=== PATIENT | female | born 1995 | race Caucasian/White ===

== ENCOUNTER → 2019-09-12 11:46 | Outpatient (CLI) | payer OTHER, SELFPAY ==
[2019-09-12 14:08] LABS: Adenovirus Not Detected (Not Detect); Bordetella pertussis Not Detected (Not Detect); Chlamydophila pneumoniae Not Detected (Not Detect); Coronavirus 229E Not Detected (Not Detect); Coronavirus HKU1 Not Detected (Not Detect); Coronavirus NL 63 Not Detected (Not Detect); Coronavirus OC43 Not Detected (Not Detect); Human Metapneumovirus Detected (Not Detect); Human Rhinovirus/Enterovirus Not Detected (Not Detect); Influenza A Not Detected (Not Detect); Influenza B Not Detected (Not Detect); Mycoplasma pneumoniae Not Detected (Not Detect); Parainfluenza Virus 1 Not Detected (Not Detect); Parainfluenza Virus 2 Not Detected (Not Detect); Parainfluenza Virus 3 Not Detected (Not Detect); Parainfluenza Virus 4 Not Detected (Not Detect); Respiratory Syncytial Virus Not Detected (Not Detect)
== END ==
PROVIDERS: Visit Provider Physician Assistant
DX: R68.89 Other general symptoms and signs (principal)
CPT/HCPCS: 87633

== ENCOUNTER → 2020-06-02 16:47 | Outpatient (CLI) | payer OTHER, SELFPAY ==
--- NOTE | 2020-06-02 16:50 | DI.RAD.S_ITS ---
PROCEDURE: XR FOOT RT MIN 3V INDICATIONS: R lateral midfoot pain TECHNIQUE: 3 views of the foot were acquired. COMPARISON: None. FINDINGS: Bones: No fractures or dislocations. No suspicious bony lesions. Soft tissues: No tibiotalar joint effusion. Achilles tendon appears normal. IMPRESSION: No trauma found. Source of pain is not seen. Dictated by: Gigi Gonzalez M.D. on 06/02/2020 at 17:08 Approved by: Gigi Gonzalez M.D. on 06/02/2020 at 17:09
== END ==
PROVIDERS: Referring Provider Student in an Organized Health Care Education/Training Program; Visit Provider Student in an Organized Health Care Education/Training Program
DX: M79.671 Pain in right foot (principal)
CPT/HCPCS: 73630

== ENCOUNTER 2021-10-17 17:30 | Emergency (ER) | payer OTHER, SELFPAY ==
[2021-10-17 17:35] VITALS: BP 153/67; PULSE 91; RESP 16; TEMP 36.7; O2SAT 97; BMI 26.6
--- NOTE | 2021-10-17 17:39 | DI.RAD.S_ITS ---
PROCEDURE: XR ANKLE LT MIN 3V INDICATIONS: pop in calf- assessing for Achilles rupture TECHNIQUE: 3 views of the ankle were acquired. COMPARISON: None. FINDINGS: Bones: No fractures or dislocations. Ankle mortise is normally aligned. No suspicious bony lesions. The talar dome demonstrates no salima abnormality. Soft tissues: Thickening is seen of the distal Achilles tendon. IMPRESSION: There is thickening seen of the distal Achilles tendon, which can be seen in patients with partial Achilles tears. If it would be helpful for clinical management decision making, please consider a dedicated, scheduled ankle MRI for further evaluation (assuming that there is no contraindication). Dictated by: Jerome Pittman M.D. on 10/17/2021 at 17:03 Approved by: Jerome Pittman M.D. on 10/17/2021 at 17:03
--- NOTE | 2021-10-17 19:07 | ED.LOWEXIN ---
HPI - Extremity Injury (Lower) <Herson Adams PA-C - Last Filed: 10/17/21 20:12> General Chief Complaint: Extremity Injury, Lower Stated Complaint: LEFT LEG INJURY CALF MUSCLE Time Seen by Provider: 10/17/21 18:16 Source: patient Mode of arrival: Ambulatory History of Present Illness HPI Narrative: Patient is a 26-year-old female presenting to the emergency department today for evaluation a left lower extremity injury. Patient is a [employer] and she explains that she was chasing down a suspect when she felt a pop in her left calf and fell to the ground. He states that she has been able to put weight on the left lower extremity but feels that she is incapable of taking a full step with the left foot. Of note, patient denies pain or injury elsewhere and states that she did not hit her head or lose consciousness as a result of the fall. No fever, chills, chest pain, cough, shortness of breath, nausea, vomiting, diarrhea, constipation, abdominal pain, dysuria, hematuria, numbness and tingling lower extremities, or any other concerning symptoms reported. No further concerns were voiced at this time. Related Data Previous Rx's Medication Instructions Recorded albuterol sulfate 90 mcg/actuation 2 puff INHALATION Q4-6H PRN #8.5 10/03/19 aerosol inhaler gram Allergies Allergy/AdvReac Type Severity Reaction Status Date / Time No Known Drug Allergies Allergy Verified 10/17/21 17:36 Review of Systems <Herson Adams PA-C - Last Filed: 10/17/21 20:12> Constitutional Constitutional: Denies chills, Denies fatigue, Denies fever(s), Denies frequent falls, Denies lethargy and Denies weakness Eyes Eyes: Denies loss of vision ENT Ears, Nose, Mouth, and Throat: Denies dizziness and Denies neck pain Cardiovascular Cardiovascular: Denies chest pain, Denies irregular heart rhythm, Denies lightheadedness, Denies palpitations, Denies dyspnea, Denies dyspnea on exertion and Denies orthopnea Respiratory Respiratory: Denies cough, Denies dyspnea, Denies dyspnea on exertion and Denies wheezing Gastrointestinal Gastrointestinal: Denies abdominal pain, Denies change in bowel habits, Denies diarrhea, Denies nausea and Denies vomiting Genitourinary Genitourinary: Denies hematuria, Denies flank pain, Denies urinary incontinence and Denies urinary urgency Musculoskeletal Musculoskeletal: Denies back pain, Reports arthralgias (Left leg pain), Denies muscle weakness, Denies neck pain, Denies numbness, Denies tingling and Reports other (Inability to ambulate on left lower extremity) Integumentary/Breasts Skin/Breast: Denies pruritus, Denies erythema, Denies rash and Denies wounds Neurologic Neurologic: Denies behavioral changes, Denies confusion, Denies dizziness, Denies frequent falls, Denies loss of vision, Denies numbness, Denies tingling and Denies weakness Psychiatric Psychiatric: Denies behavioral changes and Denies confusion Endocrine Endocrine: Denies fatigue and Denies palpitations Allergic/Immunologic Allergic/Immunologic: Denies wheezing Patient History <Herson Adams PA-C - Last Filed: 10/17/21 20:12> Medical History Swelling of postauricular region Toe pain, right Social History Smoking Status: Former smoker Smoking Status: Former smoker alcohol intake frequency: other Substance Use Type: does not use Exam <Herson Adams PA-C - Last Filed: 10/17/21 20:12> Narrative Exam Narrative: GENERAL: [] year old patient appears stated age. Well-developed patient, in mild distress. HEAD: Atraumatic. Normocephalic. EYES: Pupils equal round and reactive. Extraocular motions intact. No scleral icterus. No injection or drainage. ENT: Nose without bleeding, purulent drainage. Throat without erythema, tonsillar hypertrophy or exudate. Airway patent. NECK: Trachea midline. Non tender CARDIOVASCULAR: Regular rate and rhythm without murmurs, gallops, or rubs. RESPIRATORY: Clear to auscultation. Breath sounds equal bilaterally. No wheezes, rales, or rhonchi. GASTROINTESTINAL: Abdomen soft, non-tender, nondistended. EXTREMITIES: No edema. Positive Calhoun sign on the left lower extremity as there is no plantar flexion when the gastrocnemius is squeezed. Gap palpated in the area of the Achilles tendon. Tenderness to palpation with direct pressure applied to the left gastrocnemius. Good sensation light touch appreciated throughout the bilateral lower extremities. DP pulse palpated on the left. Patient is able to actively dorsiflex the left foot with decreased ability to plantar flex against resistance. BACK: Nontender without deformity or crepitance. No flank tenderness. NEURO: AOx3. SKIN: No rash or erythema of visible areas Initial Vital Signs Initial Vital Signs: Vital Signs Temperature 98.1 F 10/17/21 17:35 Pulse Rate 91 H 10/17/21 17:35 Respiratory Rate 16 10/17/21 17:35 Blood Pressure 153/67 H 10/17/21 17:35 Pulse Oximetry 97 10/17/21 17:35 <Becky Rees MD - Last Filed: 10/18/21 03:56> Initial Vital Signs Initial Vital Signs: Vital Signs Temperature 98.1 F 10/17/21 17:35 Pulse Rate 91 H 10/17/21 17:35 Respiratory Rate 16 10/17/21 17:35 Blood Pressure 153/67 H 10/17/21 17:35 Pulse Oximetry 97 10/17/21 17:35 Course <Herson Adams PA-C - Last Filed: 10/17/21 20:12> Course Course Narrative: Left ankle x-ray obtained. Orders Ordered: ED Orders 10/17/21 17:39 XR ankle LT min 3V Stat Consultations Consultation #1: Consultation with Dr. Phillips (orthopedic surgery). She recommends having the patient placed in a short-leg splint in plantar flexion and plan to follow-up with patient in clinic sometime this week. Time: 18:50 Vital Signs Vital signs: Vital Signs - 8 hr 10/17/21 17:35 Temperature 98.1 F Pulse Rate 91 H Respiratory Rate 16 Blood Pressure 153/67 H Pulse Oximetry 97 <Becky Rees MD - Last Filed: 10/18/21 03:56> Orders Ordered: ED Orders 10/17/21 17:39 XR ankle LT min 3V Stat Vital Signs Vital signs: Vital Signs - 8 hr 10/17/21 17:35 Temperature 98.1 F Pulse Rate 91 H Respiratory Rate 16 Blood Pressure 153/67 H Pulse Oximetry 97 MDM - Extremity Injury (Lower) <FAHEEM Garcia Last Filed: 10/17/21 20:12> Imaging Data Extremity x-ray #1: Radiologist's Impression: PROCEDURE:? XR ANKLE LT MIN 3V ? INDICATIONS:? pop in calf- assessing for Achilles rupture ? TECHNIQUE:? 3 views of the ankle were acquired.? ? COMPARISON:? None. ? FINDINGS:? ? Bones:? No fractures or dislocations.? Ankle mortise is normally aligned.? No suspicious bony lesions.? The talar dome demonstrates no salima abnormality.? ? Soft tissues:? Thickening is seen of the distal Achilles tendon. ? ? IMPRESSION:? There is thickening seen of the distal Achilles tendon, which can be seen in patients with partial Achilles tears. ? If it would be helpful for clinical management decision making, please consider a dedicated, scheduled ankle MRI for further evaluation (assuming that there is no contraindication).? ? Dictated by: Jerome Pittman M.D. on 10/17/2021 at 17:03 ? ? Approved by: Jerome Pittman M.D. on 10/17/2021 at 17:03 ? MDM Narrative Medical decision making narrative: Differential diagnosis to consider but not limited to Achilles tendon rupture versus ankle fracture versus dislocation versus sprain versus strain. I discussed results of x-ray imaging and physical exam findings with the patient and informed her that it does appear she has experienced an Achilles tendon rupture. I discussed the consultation that I had with Dr. Phillips and inform the patient that she would be placed in a short-leg splint in plantar flexion with plans to follow-up in clinic with Orthopedics. Patient expresses understanding and agrees to plan. I urged the patient to avoid placing weight on the left lower extremity until she is able to be evaluated by Orthopedics. She states that this time she is comfortable being discharged home and is stable for discharge. Strict return precautions were discussed with the patient prior to discharge. Discharge Plan Departure Patient Disposition: Home Clinical Impression: Injury of left Achilles tendon Instructions: DI for Achilles Tendon Rupture Activity Restrictions/Additional Instructions: *You have been diagnosed with left Achilles tendon injury *What to do: *Please continue to take your regular medications as directed. [ ] New medication prescriptions sent to your pharmacy: [ ] [ ] New medication written as a paper prescription [X] No new medications given You were evaluated in the emergency department today for a left lower extremity injury. Physical examination and x-ray findings indicate you may have experienced a and Achilles tendon rupture. You were placed in a plantar flexion short leg cast prior to discharge. I have set up a referral for you to follow-up with orthopedics for further evaluation and management. Their office should be reaching out to you to schedule an appointment sometime this week. Please ensure that you follow-up with the primary care provider within the next 2-3 days for further evaluation. Do not hesitate to return to the emergency department if you experience worsening pain, walks of sensation in the left lower extremity, or any other concerning symptoms. *Please follow up with your primary care provider in 2-3 days, call for an appointment. Let them know you were seen in the Emergency Department and that we ask that you be seen in follow up. We will electronically transmit a record of today's note if your PCP is in our system *If you do not have a primary care provider please contact the [facility] Resource line at [phone]. They will ask some questions about your medical history and help get you set up with a doctor in the community. *Return to Emergency Department if you should have any new, worsening or concerning symptoms, such as [fever greater than 101 F, shaking chills, worsening pain, persistent vomiting or other bothersome symptoms] Prescriptions: No Action albuterol sulfate 90 mcg/actuation HFA aerosol inhaler 2 puff INHALATION Q4-6H PRN (Reason: shortness of breath or wheezing) Qty: 8.5 0RF Referrals: Gilma Phillips MD [Physician] - 5-7 days <Becky Rees MD - Last Filed: 10/18/21 03:56> Cosign ED Attending Cosjoseature Attestation: I was immediately available in the department for consultation throughout this patient's visit. I agree with documentation as above. Becky Rees MD
== END 2021-10-17 20:09 | disposition home or self-care (01) ==
PROVIDERS: Emergency Provider Physician Assistant
DX: S86.002A Unspecified injury of left Achilles tendon, initial encounter (principal); Z87.891 Personal history of nicotine dependence; X58.XXXA Exposure to other specified factors, initial encounter; Y93.02 Activity, running; Y99.0 Civilian activity done for income or pay
CPT/HCPCS: 29515; 73610; 99282; 99283

== ENCOUNTER → 2022-05-11 08:12 | Outpatient (CLI) | payer OTHER, SELFPAY ==
--- NOTE | 2022-05-11 08:13 | DI.RAD.S_ITS ---
PROCEDURE: HL HYSTEROSAPINGOGRAPHY INDICATIONS: Secondary infertility COMPARISON: [facility], CR, XR ANKLE LT MIN 3V, 10/17/2021, 17:35. FINDINGS: Patient had a documented negative test prior to the study. Following speculum insertion, a balloon-tip catheter was inserted into the cervical canal, and secured by inflating the balloon by Dr. Ashley. Contrast was then injected into the endometrial canal. Uterus: The uterine cavity appears normal in size and morphology, without synechiae or masses. Fallopian tubes: Both fallopian tubes fill with contrast, and appear normal in caliber and morphology. There is ready dispersion of contrast into the peritoneal cavity. IMPRESSION: Normal hysterosalpingogram. Patent fallopian tubes bilaterally. Dictated by: Roland Ortega M.D. on 05/11/2022 at 12:35 Approved by: Roland Ortega M.D. on 05/11/2022 at 12:37
--- NOTE | 2022-05-11 09:16 | P.PCN_ITS ---
Procedures Date/Time Date of procedure: 05/11/22 Time of procedure: 08:40 General Procedure description: HYSTEROSALPINGOGRAM PROCEDURE NOTE Following informed consent, the patient was placed in modified dorsal lithotomy position on the fluoroscopy table and preparations made for HSG. A bivalve speculum was inserted in the vagina and the cervix itself was painted with Betadine solution. An os finder was used to identify and slightly dilate the endocervical canal and the HSG catheter was introduced into the endometrial cavity. The balloon was inflated with 1.5 cc of air and secured in the lower uterine segment. Radio-opaque contrast material was then slowly injected into the uterine cavity with fluoroscopy performed by Radiologist. Multiple images were obtained and the uterine cavity was seen to be normal in size and shape w ith prompt flow of contrast material through of fallopian tubes and spill noted bilaterally. The procedure was then terminated by removal of the HSG catheter from the endometrial cavity and post-procedure counseling provided. Follow-up will be based on the results of her infertility evaluation and pending laboratory evaluation of both the patient and her . Complications: none
== END ==
PROVIDERS: PCP Pediatrics; Referring Provider Obstetrics & Gynecology; Visit Provider Obstetrics & Gynecology
DX: N97.9 Female infertility, unspecified (principal)
CPT/HCPCS: 58340; 74740

== ENCOUNTER → 2022-05-24 13:02 | Outpatient (CLI) | payer OTHER, SELFPAY ==
[2022-05-24 13:34] LABS: Add Manual Diff / Slide Review NO; Basophils Absolute Auto 100 /uL (0-100); Basophils Percent Auto 0.7 % (0-2); Eosinophils Absolute Auto 600 /uL (0-450); Eosinophils Percent Auto 6.7 % (2-4); Hematocrit 40.3 % (36-46); Hemoglobin 13.6 g/dL (12.0-16.0); Lymphocytes Absolute Auto 1900 /uL (1100-4500); Mean Corpuscular HGB Conc 33.7 % (30-36); Mean Corpuscular Hemoglobin 29.9 PG (26-34); Mean Corpuscular Volume 88.7 fL (80-100); Monocytes Absolute Auto 700 /uL (0-900); Monocytes Percent Auto 8.5 % (3-14); Neutrophils Absolute Auto 5100 /uL (1500-7000); Neutrophils Percent Auto 61.1 % (50-75); Platelet Count 311 X10^3/uL (150-400); Red Blood Cell Count 4.54 X10^6/uL (4.0-5.2); Red Cell Distribution Width 12.5 % (11.6-14.8); White Blood Cell Count 8.4 X10^3/uL (4.5-11.0)
[2022-05-24 14:00] LABS: Erythrocyte Sedimentation Rate 16 MM/HR (0-20)
[2022-05-24 14:19] LABS: TSH w/ Reflex to FT4 0.62 uIU/mL (0.47-4.68)
[2022-05-24 17:14] LABS: Progesterone, Total 0.97 ng/mL
== END ==
PROVIDERS: PCP Pediatrics; Referring Provider Obstetrics & Gynecology; Visit Provider Obstetrics & Gynecology
DX: N97.9 Female infertility, unspecified (principal)
CPT/HCPCS: 36415; 84144; 84146; 84443; 85025; 85651

== ENCOUNTER → 2022-08-05 10:50 | Outpatient (CLI) | payer OTHER, SELFPAY | PROVIDERS: PCP Pediatrics; Referring Provider Obstetrics & Gynecology; Visit Provider Obstetrics & Gynecology | DX: N97.9 Female infertility, unspecified (principal) | CPT/HCPCS: 36415; 84144 ==

== ENCOUNTER → 2022-09-05 09:11 | Outpatient (CLI) | payer OTHER, SELFPAY | PROVIDERS: Referring Provider Obstetrics & Gynecology; Visit Provider Obstetrics & Gynecology | DX: N97.9 Female infertility, unspecified (principal) | CPT/HCPCS: 36415; 84144 ==

== ENCOUNTER → 2023-05-03 08:15 | Outpatient (CLI) | payer OTHER, SELFPAY ==
--- NOTE | 2023-05-03 08:17 | DI.US.S_ITS ---
PROCEDURE: US OB <= 14 WEEKS FETUS INDICATIONS: VIABILITY AND DATING OUTSIDE/PRIOR DATING DATA: Last menstrual period (LMP): March 03, 2023. LMP-based estimated date of delivery (HERNY): December 08, 2023. First dating scan (date and location): May 03, 2023. Estimated date of delivery (HENRY) from first dating scan: December 07, 2023. TECHNIQUE: Real-time scanning was performed of the fetus and maternal pelvic organs, with image documentation. Endovaginal scanning was also performed to better visualize the fetus and maternal ovaries. COMPARISON: None. FINDINGS: Embryo: Single living intrauterine gestation with estimated sonographic gestational age of approximately 8 weeks and 6 days based off crown-rump length measurement of approximately 2.2 cm. Normal yolk sac. Small perigestational hemorrhage measuring 0.7 x 0.6 x 0.6 cm. There is a possible umbilical cord cyst versus focal dilatation. Heart rate: 175 beats per minute Maternal organs: Ovaries incidental note of a 2.2 cm right corpus luteal cyst. Maternal ovaries are otherwise unremarkable.. IMPRESSION: Single living intrauterine gestation with estimated sonographic gestational age of approximately 8 weeks and 6 days with estimated dated delivery of approximately December 07, 2023. Gestational age measures concordant with dating by last menstrual period. Possible small umbilical cord cyst versus mild focal dilatation of the umbilical cord. Attention can be made on follow-up imaging. Recommend follow-up routine second-trimester anatomy screening survey. We strive to produce accurate, complete, and clear reports of imaging services. To assist us in improving patient care, this report was composed using standard report templates and voice recognition software. Therefore, it may contain abnormal punctuation, insertions and/or omissions. Occasional wrong-word or sound-alike substitutions may occur. Though we review the report and make efforts to correct it, we do recommend that the report be read carefully in proper context to recognize any text inaccuracies. Dictated by: Pascual Stout M.D. on 05/03/2023 at 15:08 Approved by: Pascual Stout M.D. on 05/03/2023 at 15:12
== END ==
PROVIDERS: PCP Family Medicine; Referring Provider Obstetrics & Gynecology; Visit Provider Obstetrics & Gynecology
DX: O09.811 Supervision of pregnancy resulting from assisted reproductive technology, first trimester (principal); Z3A.08 8 weeks gestation of pregnancy
CPT/HCPCS: 76801; 76830; 93976

== ENCOUNTER → 2023-05-29 09:48 | Outpatient (CLI) | payer OTHER, SELFPAY ==
[2023-05-29 11:20] LABS: Add Manual Diff / Slide Review NO; Basophils Absolute Auto 0 /uL (0-100); Basophils Percent Auto 0.5 % (0-2); Eosinophils Absolute Auto 400 /uL (0-450); Eosinophils Percent Auto 4.2 % (2-4); Hematocrit 38.3 % (36-46); Hemoglobin 13.2 g/dL (12.0-16.0); Lymphocytes Absolute Auto 1400 /uL (1100-4500); Mean Corpuscular HGB Conc 34.4 % (30-36); Mean Corpuscular Hemoglobin 30.4 PG (26-34); Mean Corpuscular Volume 88.4 fL (80-100); Monocytes Absolute Auto 700 /uL (0-900); Monocytes Percent Auto 7.2 % (3-14); Neutrophils Absolute Auto 7600 /uL (1500-7000); Neutrophils Percent Auto 74.1 % (50-75); Platelet Count 303 X10^3/uL (150-400); Red Blood Cell Count 4.33 X10^6/uL (4.0-5.2); Red Cell Distribution Width 12.7 % (11.6-14.8); White Blood Cell Count 10.3 X10^3/uL (4.5-11.0)
[2023-05-29 15:04] LABS: Urine N gonorrhoeae NOT DETECTED
[2023-05-29 15:05] LABS: Urine Chlamydia NOT DETECTED
[2023-05-30 07:13] LABS: RPR Screen Non Reactive (Non Reactive)
[2023-05-30 09:14] LABS: Varicella IgG Antibody 2918 index (Immune >165)
[2023-05-31 16:38] LABS: HIV 1 & 2 Ab/Ag 4th Gen Combo NEGATIVE (NEGATIVE); Hep C Virus Ab w/Reflex Quant NEGATIVE s/c (NEGATIVE); Hepatitis B Surface Antigen NEGATIVE s/c (NEGATIVE); Rubella Antibody IgG 17.3 IU/mL (>15)
== END ==
PROVIDERS: PCP Family Medicine; Referring Provider Obstetrics & Gynecology; Visit Provider Obstetrics & Gynecology
DX: O09.819 Supervision of pregnancy resulting from assisted reproductive technology, unspecified trimester (principal); Z34.81 Encounter for supervision of other normal pregnancy, first trimester; Z3A.12 12 weeks gestation of pregnancy
CPT/HCPCS: 36415; 80055; 86787; 86803; 86850; 86900; 86901; 87389; 87491; 87591

== ENCOUNTER → 2023-06-26 08:28 | Outpatient (CLI) | payer OTHER, SELFPAY | PROVIDERS: PCP Family Medicine; Visit Provider Obstetrics & Gynecology | DX: O09.819 Supervision of pregnancy resulting from assisted reproductive technology, unspecified trimester (principal) | CPT/HCPCS: 87086 ==

== ENCOUNTER → 2023-06-26 08:33 | Outpatient (CLI) | payer OTHER, SELFPAY ==
[2023-06-28 22:15] LABS: AFP Value 43.6 ng/mL (.); Insulin Dep Diabetes No (.); OSBR Risk 1IN 1995 (.); Results Report (.); Test Results *Screen Negative* (.)
== END ==
PROVIDERS: PCP Family Medicine; Referring Provider Obstetrics & Gynecology; Visit Provider Obstetrics & Gynecology
DX: O09.812 Supervision of pregnancy resulting from assisted reproductive technology, second trimester (principal); Z3A.16 16 weeks gestation of pregnancy
CPT/HCPCS: 36415; 82105; 87086

== ENCOUNTER → 2023-07-23 07:45 | Outpatient (CLI) | payer OTHER, SELFPAY ==
--- NOTE | 2023-07-23 07:46 | DI.US.S_ITS ---
PROCEDURE: US OB >= 14 WEEKS FETUS INDICATIONS: ANATOMY OUTSIDE/PRIOR DATING DATA: Last menstrual period (LMP): March 03, 2023. LMP-based estimated date of delivery (HENRY): December 08, 2023. First dating scan (date and location): May 03, 2023. Estimated date of delivery (HENRY) from first dating scan: December 07, 2023. The calculations are made using the LMP HENRY of December 08, 2023. TECHNIQUE: Real-time scanning was performed of the fetus, with image documentation and biometric measurements. Endovaginal scanning: Not performed COMPARISON: None. FINDINGS: General: A single living intrauterine gestation is present. Presentation: Variable. Placenta: Placental position is posterior , without previa. Amniotic fluid index: 17.8 cm, normal range is 5-24 cm. Single deepest vertical pocket is 5.9 cm. heart rate: 153 beats per minute. Maternal cervical canal: 0.2 cm long. Normal lower limit is 2.5 cm. biometrics: Biparietal diameter: 4.7 cm, 20 weeks and 1 day Head circumference: 18.2 cm, 20 weeks and 4 days Abdominal circumference: 16.4 cm, 21 weeks and 3 days Femur length: 3.3 cm, 20 weeks and 1 day Clinically estimated gestational age: 20 weeks and 2 days Composite gestational age from present scan: 20 weeks and 4 days Estimated weight and percentile: 380 g, 75th percentile for gestational age Anatomic survey: Neuro: Ventricles are non-dilated at less than 10 mm. Cisterna magna is normal at 3-11 mm. Cerebellum is normal in size and morphology. Nuchal skin fold: Normal at less than 6 mm between 14-21 weeks gestational age. Face: Nose and lips, facial profile are normal. Spine: No evidence for spina bifida. Heart: 4-chambered heart is present, with normal left ventricular outflow tracts. Diaphragm: Diaphragm is intact. Stomach: Left-sided stomach is present. Kidneys: No hydronephrosis. Normal is less than 5 mm in 2nd trimester, less than 7 mm in 3rd trimester. Cord: 3-vessel cord has orthotopic insertion. Bladder: Normal in size. Extremities: All 4 extremities identified. IMPRESSION: Single living intrauterine gestation with estimated sonographic gestational age of approximately 20 weeks and 4 days versus approximately 20 weeks and 2 days based off last menstrual period. Normal interval growth has occurred. Estimated weight of approximately 380 g which correlates with the 75th percentile for gestational age. Limited evaluation of the right ventricular outflow tract secondary to lie. Otherwise, normal second-trimester anatomy screening survey. Follow-up imaging recommended. We strive to produce accurate, complete, and clear reports of imaging services. To assist us in improving patient care, this report was composed using standard report templates and voice recognition software. Therefore, it may contain abnormal punctuation, insertions and/or omissions. Occasional wrong-word or sound-alike substitutions may occur. Though we review the report and make efforts to correct it, we do recommend that the report be read carefully in proper context to recognize any text inaccuracies. Dictated by: Pascual Stout M.D. on 07/23/2023 at 17:47 Approved by: Pascual Stout M.D. on 07/23/2023 at 17:50
== END ==
PROVIDERS: PCP Family Medicine; Referring Provider Obstetrics & Gynecology; Visit Provider Obstetrics & Gynecology
DX: Z34.82 Encounter for supervision of other normal pregnancy, second trimester (principal); Z3A.20 20 weeks gestation of pregnancy
CPT/HCPCS: 76811